=== PATIENT | male | born 1985 | race Caucasian/White ===

== ENCOUNTER 2018-03-01 17:42 | Emergency (ER) | payer MEDICAID ==
[~2018-03-01] VITALS: Ht 182.9 cm; Wt 149.7 kg
[2018-03-01 17:47] VITALS: Ht 182.9 cm; Wt 149.7 kg
[2018-03-01 21:47] VITALS: BP 139/81
== END 2018-03-01 21:47 | disposition home or self-care (01) ==
LOC: EDSEX 17:42 → ED 17:42
DX: R07.89 Other chest pain (principal); R11.2 Nausea with vomiting, unspecified; R19.7 Diarrhea, unspecified; F17.210 Nicotine dependence, cigarettes, uncomplicated
CPT/HCPCS: J1885; J2270; Q0162